=== PATIENT | female | born 2000 | race Caucasian/White ===

== ENCOUNTER 2022-03-11 18:46 | Emergency (ER) | payer OTHER ==
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
[2022-03-11] MEDS ORDERED: TORAdol 30 mg Injection IM ONE (19:40)
[2022-03-11] MEDS ORDERED: TORAdol 30 mg Injection ONE (19:42)
[2022-03-11] MEDS ORDERED: NORCO 5/325 MG PO ONE (19:48)
[2022-03-11] MEDS ORDERED: NORCO 5/325 MG ONE (19:49)
[2022-03-11 20:21] VITALS: BP 112/77; PULSE 101
[2022-03-11 23:10] VITALS: O2SAT 98
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
== END 2022-03-11 20:22 | disposition home or self-care (01) ==
LOC: EDSEX 18:46 → EDBD 18:46 → ED 18:46
DX: S16.1XXA Strain of muscle, fascia and tendon at neck level, initial encounter (principal); S09.90XA Unspecified injury of head, initial encounter; S00.83XA Contusion of other part of head, initial encounter; V43.51XA Car driver injured in collision with sport utility vehicle in traffic accident, initial encounter; Y92.414 Local residential or business street as the place of occurrence of the external cause; R51.9 Headache, unspecified; M54.2 Cervicalgia; E04.1 Nontoxic single thyroid nodule; Z79.899 Other long term (current) drug therapy
CPT/HCPCS: 70450; 70486; 72125; 99285; J1885; A9270-GY